=== PATIENT | female | born 1990 | race Caucasian/White ===

== ENCOUNTER 2022-06-25 16:38 | Emergency (ER) | payer OTHER ==
[~2022-06-25] VITALS: Ht 172.7 cm; Wt 78.5 kg
[2022-06-25 16:43] VITALS: BP 143/80
--- NOTE | 2022-06-25 16:57 | NUR ---
C/O CHEST PAIN X1 HOUR, DENIES SOB, ABD PAIN,ARM PAIN ALLERGY: AMOXICILLIN PMH: HERPES, NERVE DAMAGE
[2022-06-25] MEDS ORDERED: HALOPERIDOL IM 5 MG/ML VIAL ONE (17:26)
[2022-06-25] MEDS ORDERED: LORazepam 2 MG/ML VIAL ONE (17:26)
--- NOTE | 2022-06-25 17:41 | NUR ---
here for chest pain for 1-2 hours, c/o palpitations, nsr on cm, hr 78, o2 sat 99% yasir sr up times 2.
[2022-06-25 18:32] LABS: BASOPHILS # (AUTO) 0.1 K/uL (0.00-0.22); BASOPHILS % (AUTO) 0.4 % (0.0-2.0); EOSINOPHILS % (AUTO) 0.3 % (0.0-4.0); HEMATOCRIT 38.4 % (36-48); HEMOGLOBIN 12.8 g/dL (12.0-16.0); LYMPHOCYTES # (AUTO) 2.1 K/uL (2.5-16.5); MEAN CORPUSCULAR HEMOGLOBIN 29 pg (27-31); MEAN CORPUSCULAR HGB CONC 33 g/dL (33-37); MEAN CORPUSCULAR VOLUME 86.4 fL (80-94); MONOCYTES # (AUTO) 0.9 K/uL (0.8-1.0); MONOCYTES % (AUTO) 5.9 % (1.7-9.3); NEUTROPHILS # (AUTO) 11.7 K/uL (1.8-7.7); NEUTROPHILS % (AUTO) 79.4 % (42.2-75.2); PLATELET COUNT (AUTO) 377 K/uL (140-450); RED BLOOD CELL COUNT(AUTO) 4.44 MIL/uL (4.20-5.40); RED CELL DISTRIBUTION WIDTH 14.5 % (11.6-13.7); WHITE BLOOD COUNT (AUTO) 14.8 K/uL (4.8-10.8)
[2022-06-25 19:08] LABS: PROTHROMBIN TIME 10.2 secs (10.8-13.4)
--- NOTE | 2022-06-25 19:22 | NUR ---
pt report to night supervisor nurse, Kateryna. no distress noted in pt
[2022-06-25 19:24] LABS: ANION GAP 14.9 (8-16); ASPARTATE AMINOTRANSFERASE 13 U/L (15-37); CARBON DIOXIDE 24.8 mmol/L (21-32); CHLORIDE 101 mmol/L (98-107); CREATININE 0.8 mg/dL (0.6-1.3); GFR ARICAN-AMERICAN 107 mL/min (>90); GLUCOSE 144 mg/dL (74-106); POTASSIUM 3.7 mmol/L (3.5-5.1); SODIUM SERUM 137 mmol/L (136-145); TOTAL BILIRUBIN 0.3 mg/dL (0.0-1.0); UREA NITROGEN, BLOOD 11 mg/dL (7-18)
[2022-06-25] MEDS ORDERED: ATA10 PO (20:26)
--- NOTE | 2022-06-25 20:41 | NUR ---
Patient discharged with v/s stable. Written and verbal after care instructions given and explained. Patient verbalized understanding. Ambulatory with steady gait. All questions addressed prior to discharge. Advised to follow up with PMD.
== END 2022-06-25 20:41 | disposition home or self-care (01) ==
LOC: MED 16:38
DX: R00.2 Palpitations (principal); Z88.1 Allergy status to other antibiotic agents; Z79.899 Other long term (current) drug therapy
CPT/HCPCS: 36415; 71045; 80053; 84443; 84479; 84484; 85025; 85610; 85730; 93005; 99285; Q0092; J1630; J2060